=== PATIENT | male | born 1935 | race Caucasian/White ===

== ENCOUNTER 2017-05-25 15:23 | Observation (INO) | payer MEDICARE ==
[~2017-05-25] VITALS: Ht 170.2 cm; Wt 92.1 kg
[~2017-05-25 15:23] MED LIST: AEC81 PO; ATOR10 PO; CLOP75TA14 PO; CYAN100010 PO; ENOX80DI8 SQ; FENO134C PO; METF500T6 PO; METO25 PO; SITA100T12 PO; WARF5TAB76 PO
[2017-05-25] MEDS ORDERED: ASPIRIN 325 MG TABLET ONE (15:54)
[2017-05-25 16:19] LABS: BASOPHILS % (AUTO) 0.4 % (0.0-5.0); EOSINOPHILS % (AUTO) 0.8 % (0.0-8.0); HEMATOCRIT 46.4 % (42-54); LYMPHOCYTES % (AUTO) 7.6 % (21.0-51.0); MEAN CORPUSCULAR HEMOGLOBIN 30.6 pg (27.0-33.0); MEAN CORPUSCULAR HGB CONC 33.6 g/dL (32.0-36.0); MEAN CORPUSCULAR VOLUME 91.2 fL (79-99); MONOCYTES % (AUTO) 7.1 % (3.0-13.0); NEUTROPHILS % (AUTO) 84.1 % (40.0-77.0); PLATELET COUNT (AUTO) 200 K/uL (130-400); RED BLOOD CELL COUNT(AUTO) 5.08 MIL/uL (4.50-6.20); RED CELL DISTRIBUTION WIDTH 13.8 % (11.0-15.5)
[2017-05-25 16:27] LABS: CREATININE 1.1 mg/dL (0.5-1.5); POTASSIUM 4.5 mmol/L (3.5-5.1)
[2017-05-25 16:31] LABS: ALBUMIN 3.8 g/dL (3.5-5.0); BILIRUBIN,DIRECT 0.1 mg/dL (0.0-0.3); BILIRUBIN,TOTAL 0.5 mg/dL (0.2-1.0); TOTAL PROTEIN, SERUM 7.5 g/dL (6.0-8.3)
[2017-05-25 16:47] LABS: B-TYPE NATRIURETIC PEPTIDE 95 pg/mL (0-100)
[2017-05-25] MEDS ORDERED: SODIUM CHLORIDE 0.9% 1000ML 1,000 ML IV ONE (17:28)
[2017-05-25] MEDS ORDERED: FENTANYL CITRATE PF 50 MCG/1 ML 2ML VIAL ONE (17:28)
[2017-05-25 18:55] VITALS: BP 123/66
[2017-05-25] MEDS ORDERED: MORPHINE SULFATE 2 MG/ML 1ML SYG IVP PRN (19:15)
[2017-05-25] MEDS ORDERED: ONDANSETRON HCL 4 MG/2 ML VIAL IVP PRN (19:15)
[2017-05-25] MEDS ORDERED: MORPHINE SULFATE 4 MG/1ML SYG IVP PRN (19:15)
[2017-05-25] MEDS ORDERED: ACETAMINOPHEN 325 MG TAB PO PRN (19:15)
[2017-05-25 22:38] LABS: BILIRUBIN,URINE Negative (NEGATIVE); COLOR,URINE Yellow (YELLOW); GLUCOSE, URINE (UA) 500 mg/dL (NEGATIVE); KETONES,URINE Negative (NEGATIVE); LEUKOCYTE ESTERASE ,URINE Negative (NEGATIVE); NITRATE,URINE Negative (NEGATIVE); OCCULT BLOOD,URINE Negative (NEGATIVE); PH,URINE 6.5 (5.0-8.0); PROTEIN,URINE Negative (NEGATIVE); UROBILINOGEN,URINE 0.2 mg/dL (0.2-1.0)
[2017-05-25 22:40] LABS: APPEARANCE,URINE CLEAR (CLEAR)
[2017-05-25 22:52] LABS: BACTERIA,URINE None Seen /HPF (None Seen); RBC,URINE None Seen /HPF (0-1); SQUAMOUS EPITHELIAL CELL,UR Rare /LPF (0-2); WBC,URINE None Seen /HPF (0-1); YEAST,URINE BUDDING None Seen /HPF (None Seen)
[2017-05-25] MEDS ORDERED: GLIM1TAB2 PO (23:01)
[2017-05-25] MEDS ORDERED: ATOR10TA69 PO (23:01)
[2017-05-25] MEDS: METOPROLOL TARTRATE 25 MG TAB PO SCH (23:03)
[2017-05-25 23:07] LABS: CREATINE KINASE MB 0.8 ng/mL (0.5-3.6); CREATINE KINASE, TOTAL 80 U/L (21-232); MYOGLOBIN 53 ng/mL (10-92); TROPONIN I < 0.04 ng/mL (0.00-0.06)
[2017-05-26] MEDS ORDERED: HYDRALAZINE HCL 20 MG/ML VIAL IV PRN
[2017-05-26] MEDS ORDERED: POTASSIUM CHLORIDE 20 MEQ ERTAB PO PRN
[2017-05-26] MEDS ORDERED: POTASSIUM CHLORIDE 10% ELIXIR 20 MEQ/15 ML UDCUP PO PRN
[2017-05-26] MEDS ORDERED: LIDOCAINE HCL-MPF 1% 2ML VIAL IVP PRN
[2017-05-26] MEDS ORDERED: POTASSIUM CHLORIDE 20MEQ/100ML 100 ML IV PRN
[2017-05-26 00:05] VITALS: BP 124/70
[2017-05-26] MEDS: LEVOFLOXACIN 500 MG/D5W 100 ML 100 ML IV SCH (00:38)
[2017-05-26 04:02] VITALS: BP 95/49
[2017-05-26 05:07] LABS: BASOPHILS % (AUTO) 0.5 % (0.0-5.0); EOSINOPHILS % (AUTO) 0.8 % (0.0-8.0); HEMATOCRIT 41.1 % (42-54); LYMPHOCYTES % (AUTO) 16.3 % (21.0-51.0); MEAN CORPUSCULAR HEMOGLOBIN 30.2 pg (27.0-33.0); MEAN CORPUSCULAR HGB CONC 33.4 g/dL (32.0-36.0); MEAN CORPUSCULAR VOLUME 90.5 fL (79-99); MONOCYTES % (AUTO) 13.4 % (3.0-13.0); PLATELET COUNT (AUTO) 190 K/uL (130-400); RED BLOOD CELL COUNT(AUTO) 4.54 MIL/uL (4.50-6.20); RED CELL DISTRIBUTION WIDTH 14.1 % (11.0-15.5); WHITE BLOOD COUNT (AUTO) 6.1 K/uL (4.8-10.8)
[2017-05-26 05:17] LABS: B-TYPE NATRIURETIC PEPTIDE 166 pg/mL (0-100)
[2017-05-26 05:36] LABS: CARBON DIOXIDE 26 mmol/L (21-32); CHLORIDE 104 mmol/L (101-111); CREATINE KINASE MB < 0.5 ng/mL (0.5-3.6); CREATINE KINASE, TOTAL 60 U/L (21-232); GLOMERULAR FILTR. RATE CALC 76 mL/min (>60); GLUCOSE,RANDOM 169 mg/dL (70-105); MYOGLOBIN 49 ng/mL (10-92); POTASSIUM 3.8 mmol/L (3.5-5.1); SODIUM SERUM 139 mmol/L (136-145); TROPONIN I < 0.04 ng/mL (0.00-0.06); UREA NITROGEN, BLOOD 11 mg/dL (7-18)
[2017-05-26 07:31] VITALS: BP 127/58
[2017-05-26] MEDS ORDERED: IOPAMIDOL-370 100 ML VIAL IV ONE (08:39)
[2017-05-26] MEDS ORDERED: ENOXAPARIN SODIUM 30 MG/0.3 ML SQ SCH (09:00)
[2017-05-26] MEDS: ASPIRIN 325 MG TABLET PO SCH (09:32)
[2017-05-26] MEDS: FAMOTIDINE 20MG TAB 20 MG TAB PO SCH ×2 (09:32→21:45)
[2017-05-26] MEDS: METOPROLOL TARTRATE 25 MG TAB PO SCH ×2 (09:32→21:45)
[2017-05-26 11:57] VITALS: BP 130/80
[2017-05-26 16:32] VITALS: BP 119/77
[2017-05-26] MEDS: LINAGLIPTIN 5 MG TABLET PO SCH (19:10)
[2017-05-26 20:00] VITALS: BP 128/76
[2017-05-26] MEDS ORDERED: METOPROLOL TARTRATE 25 MG TAB PO SCH (21:00)
[2017-05-26] MEDS ORDERED: FENOFIBRATE 134 MG PO SCH (21:00)
[2017-05-26] MEDS: GLIMEPIRIDE 2 MG TABLET PO SCH (21:45)
[2017-05-27] VITALS: BP 116/73
[2017-05-27] MEDS ORDERED: SODIUM CHLORIDE 0.9% 500ML 500 ML IV ONE (01:41)
[2017-05-27] MEDS: LEVOFLOXACIN 500 MG/D5W 100 ML 100 ML IV SCH (01:46)
[2017-05-27] MEDS: GUAIFENESIN-DM 200/20 MG 10 ML PO PRN ×2 (01:47→10:14)
[2017-05-27 03:46] VITALS: BP 133/78
[2017-05-27 05:21] LABS: BASOPHILS % (AUTO) 0.6 % (0.0-5.0); EOSINOPHILS % (AUTO) 0.9 % (0.0-8.0); HEMATOCRIT 41.5 % (42-54); LYMPHOCYTES % (AUTO) 17.5 % (21.0-51.0); MEAN CORPUSCULAR HEMOGLOBIN 31.7 pg (27.0-33.0); MEAN CORPUSCULAR HGB CONC 34.6 g/dL (32.0-36.0); MEAN CORPUSCULAR VOLUME 91.6 fL (79-99); MONOCYTES % (AUTO) 12.4 % (3.0-13.0); NEUTROPHILS % (AUTO) 68.6 % (40.0-77.0); PLATELET COUNT (AUTO) 177 K/uL (130-400); RED BLOOD CELL COUNT(AUTO) 4.53 MIL/uL (4.50-6.20); RED CELL DISTRIBUTION WIDTH 13.7 % (11.0-15.5); WHITE BLOOD COUNT (AUTO) 5.9 K/uL (4.8-10.8)
[2017-05-27 05:39] LABS: B-TYPE NATRIURETIC PEPTIDE 160 pg/mL (0-100)
[2017-05-27] MEDS: LACTULOSE 20 GM/30 ML UDCUP PO PRN ×2 (06:37→10:13)
[2017-05-27] MEDS: INSULIN HUMULIN R 100 UNIT/ML 3ML SQ SCH ×2 (06:38→13:07)
[2017-05-27 08:56] VITALS: BP 134/87
[2017-05-27] MEDS ORDERED: CYANOCOBALAMIN (VITAMIN B-12) 1,000 MCG TABLET PO SCH (09:00)
[2017-05-27] MEDS ORDERED: ATORVASTATIN CALCIUM 10 MG TABLET PO SCH (09:00)
[2017-05-27] MEDS: METOPROLOL TARTRATE 25 MG TAB PO SCH (09:00)
[2017-05-27] MEDS: FAMOTIDINE 20MG TAB 20 MG TAB PO SCH (10:08)
[2017-05-27] MEDS: LINAGLIPTIN 5 MG TABLET PO SCH (10:09)
[2017-05-27] MEDS: GLIMEPIRIDE 2 MG TABLET PO SCH (10:09)
[2017-05-27] MEDS: ASPIRIN 325 MG TABLET PO SCH (10:09)
[2017-05-27 12:47] VITALS: BP 130/77
== END 2017-05-27 14:40 | disposition home or self-care (01) ==
LOC: EDH 15:23 → EDHIP 17:27 → 4CH 18:09
PROVIDERS: ADMIT Internal Medicine; ATTEND Internal Medicine
DX: R07.89 Other chest pain (principal); I25.10 Atherosclerotic heart disease of native coronary artery without angina pectoris; E78.5 Hyperlipidemia, unspecified; E11.9 Type 2 diabetes mellitus without complications; I11.0 Hypertensive heart disease with heart failure; I50.22 Chronic systolic (congestive) heart failure; I25.2 Old myocardial infarction; F17.210 Nicotine dependence, cigarettes, uncomplicated; Z23 Encounter for immunization; Z95.5 Presence of coronary angioplasty implant and graft; B34.9 Viral infection, unspecified
CPT/HCPCS: 36415 ×3; 71045; 71275; 80048 ×2; 80076; 81001; 82550 ×3; 82553 ×3; 82948 ×7; 83690; 83874 ×2; 83880 ×3; 84484 ×3; 85025 ×3; 85378; 87088; 87633; 87804 ×2; 93005; 93970; 96365; 96366; 96372 ×2; 99285; G0378 ×45; J1650 ×2; J1815 ×2; J1956 ×2; J3010; J7030; J7040; Q9967

== ENCOUNTER → 2017-07-16 | Outpatient (CLI) | payer MEDICARE ==
[~2017-07-16] MED LIST changes: -ATOR10 PO; +ATOR10TA69 PO; -CLOP75TA14 PO; -ENOX80DI8 SQ; +GLIM1TAB2 PO; -WARF5TAB76 PO
== END | disposition home or self-care (01) ==
LOC: RAH 12:44
PROVIDERS: ATTEND Family Medicine
DX: N28.1 Cyst of kidney, acquired (principal)
CPT/HCPCS: 76770

== ENCOUNTER → 2017-09-18 | Outpatient (CLI) | payer MEDICARE | END | disposition home or self-care (01) | LOC: SHCH 09:14 | PROVIDERS: ATTEND Internal Medicine Cardiovascular Disease | DX: I25.10 Atherosclerotic heart disease of native coronary artery without angina pectoris (principal); I65.23 Occlusion and stenosis of bilateral carotid arteries | CPT/HCPCS: 93880 ==

== ENCOUNTER → 2018-02-22 | Outpatient (CLI) | payer MEDICARE ==
[~2018-02-22] MED LIST changes: +METF-444 PO; -METF500T6 PO
== END | disposition home or self-care (01) ==
LOC: RAH 11:46
PROVIDERS: ATTEND Family Medicine
DX: N28.1 Cyst of kidney, acquired (principal); N32.89 Other specified disorders of bladder; I11.0 Hypertensive heart disease with heart failure; I50.22 Chronic systolic (congestive) heart failure; E11.9 Type 2 diabetes mellitus without complications; E78.5 Hyperlipidemia, unspecified; I25.10 Atherosclerotic heart disease of native coronary artery without angina pectoris; Z87.891 Personal history of nicotine dependence
CPT/HCPCS: 76770

== ENCOUNTER → 2019-04-14 | Outpatient (CLI) | payer MEDICARE ==
[~2019-04-14] MED LIST changes: -GLIM1TAB2 PO; +GLIM1TAB3 PO
== END | disposition home or self-care (01) ==
LOC: SHCH 11:37
PROVIDERS: ATTEND Internal Medicine Cardiovascular Disease
DX: I35.8 Other nonrheumatic aortic valve disorders (principal); I51.7 Cardiomegaly
CPT/HCPCS: 93306

== ENCOUNTER 2019-08-04 09:44 | Observation (INO) | payer MEDICARE ==
[2019-08-01 10:07] LABS: BASOPHILS % (AUTO) 0.7 % (0.0-5.0); EOSINOPHILS % (AUTO) 2.4 % (0.0-8.0); HEMATOCRIT 48.3 % (42-54); LYMPHOCYTES % (AUTO) 23.7 % (21.0-51.0); MEAN CORPUSCULAR HEMOGLOBIN 30.2 pg (27.0-33.0); MEAN CORPUSCULAR HGB CONC 32.3 g/dL (32.0-36.0); MEAN CORPUSCULAR VOLUME 93.6 fL (79-99); MONOCYTES % (AUTO) 6.6 % (3.0-13.0); NEUTROPHILS % (AUTO) 66.3 % (40.0-77.0); PLATELET COUNT (AUTO) 220 K/uL (130-400); RED BLOOD CELL COUNT(AUTO) 5.16 MIL/uL (4.50-6.20); RED CELL DISTRIBUTION WIDTH 13.7 % (11.0-15.5); WHITE BLOOD COUNT (AUTO) 7.6 K/uL (4.8-10.8)
[2019-08-01 10:29] LABS: INR 0.97 (0.85-1.15); PARTIAL THROMBOPLASTIN TIME 27.8 SEC (26.3-35.5); PROTHROMBIN TIME 10.5 SEC (9.6-11.6)
[2019-08-01 10:30] LABS: POTASSIUM 4.5 mmol/L (3.5-5.1)
[2019-08-01 10:44] VITALS: BP 138/69
[2019-08-04] VITALS (13 sets, daily range): BP systolic 128–161; BP diastolic 66–87
[~2019-08-04] VITALS: Ht 170.2 cm; Wt 92.1 kg
[~2019-08-04 09:44] MED LIST changes: -AEC81 PO; +ASPI-1005 PO; -ATOR10TA69 PO; +ATOR40TA71 PO; -FENO134C PO; -GLIM1TAB3 PO; +INSLAN SQ; +LISI10TA7 PO; -METF-444 PO; +METF-446 PO; +METO-391 PO; -METO25 PO; -SITA100T12 PO; +SODIUM CHLORIDE 0.9% 1000ML 1,000 ML IV SCH
--- NOTE | 2019-08-04 09:45 | NUR ---
PRE-PROCEDURE RECEIVED AMBULATING TO DAY 8 FOR SCHEDULED BI-V AICD. AWAKE IN NO ACUTE DISTRESS. DENIES PAIN. CONNECTED TO CONTINUOUS CARDIOPULMONARY MONITORING. SIDE RAILS UP X2, BED IN LOWEST POSITION, AND CALL LIGHT W/IN REACH.
--- NOTE | 2019-08-04 10:25 | NUR ---
SPOKE WITH PAULETTE WILDE RN (DR. WILSON IN PROCEDURE) IN [employer]NA[employer]ED [employer]SULTANT NOTIFIED PT TOOK LANT[place] 25UNITS IN AM. NO NEW ORDERS RECEIVED.
[2019-08-04] MEDS ORDERED: BUPIVACAINE/PF 0.25% 30ML VIAL IJ ONE (13:15)
[2019-08-04] MEDS ORDERED: CEFAZOLIN SODIUM 1 GM VIAL ONE (13:16)
[2019-08-04] MEDS ORDERED: LIDOCAINE HCL 1% MDV 50ML VIAL ONE (13:16)
[2019-08-04] MEDS ORDERED: IODIXANOL 320 MG/ML 100 ML VIAL ONE (13:16)
--- NOTE | 2019-08-04 13:20 | NUR ---
PROCEDURE TRANSFERRED TO CUT OFF SAW OPERATOR METAL VIA BED BY PAULETTE WILDE RN. AWAKE IN NO ACUTE DISTRESS.
[2019-08-04] MEDS ORDERED: MIDAZOLAM HCL 1 MG/ML 2ML VIAL ONE ×2 (13:41→14:06)
[2019-08-04] MEDS ORDERED: MEPERIDINE-PF 25 MG/ML SYG ONE ×2 (13:41→14:05)
--- NOTE | 2019-08-04 14:08 | NUR ---
REPORT REPORT GIVEN TO FRANNY BANDA USING SBAR. VERBALIZED UNDERSTANDING. PT CURRENTLY IN PROCEDURE.
--- NOTE | 2019-08-04 15:40 | NUR ---
PT TSF BACK TO DAY 8 FROM US [employer]ICER, TSF BY BED BY RIN BLANTON.
--- NOTE | 2019-08-04 16:05 | NUR ---
CALL [facility] FOR CONSULT WAIT TRADE [employer]ION SECRETARY BACK
--- NOTE | 2019-08-04 16:10 | NUR ---
TIMOTHY FROM [facility] WILL COME AND SEE PT. IN DAY 8. NO ORDERS GIVEN
[2019-08-04] MEDS ORDERED: GLUCAGON 1MG KIT 1 MG ML IM PRN (17:45)
[2019-08-04] MEDS ORDERED: DEXTROSE 50%-WATER 50 ML DISP.SYRIN IV PRN (17:45)
[2019-08-04] MEDS: ACETAMINOPHEN-CODEINE 300/30MG TAB PO PRN (17:55)
--- NOTE | 2019-08-04 18:05 | NUR ---
STATUS PT RECEIVED FROM DAY PT VIA BED, S/P BiV ICD PLACEMENT. LT UPPER CHEST PRESSURE DSG. NO DRAINAGE NOTED. SLING TO LT ARM. ARM PRECAUTIONS REVIEWED & REINFORCED @ THIS TIME. BEDREST UNTIL 1839. DENIES INCISIONAL PAIN @ THIS TIME. A/O X 3. NO SOB. NO DISTRESS NOTED. TELE: SR. DENIES N/V AND/OR DIARRHEA. ORIENTED TO RM. INSTRUCTED TO CALL FOR ASSISTANCE. CALL LINDA W/IN REACH.
[2019-08-04] MEDS ORDERED: LISINOPRIL 10 MG TABLET PO SCH (21:00)
[2019-08-04] MEDS: INSULIN HUMULIN R 100 UNIT/ML 3ML SQ SCH (21:00)
[2019-08-04] MEDS ORDERED: ATORVASTATIN CALCIUM 40 MG TABLET PO SCH (21:00)
[2019-08-04] MEDS ORDERED: METOPROLOL SUCCINATE 50 MG TAB.SR.24H PO SCH (21:00)
[2019-08-04] MEDS: INSULIN GLARGINE 100 UNITS/ML 10 ML VIAL SQ SCH (21:45)
[2019-08-05 03:47] VITALS: BP 127/77
[2019-08-05] MEDS: INSULIN HUMULIN R 100 UNIT/ML 3ML SQ SCH (06:55)
[2019-08-05 07:59] VITALS: BP 122/81
[2019-08-05] MEDS: INSULIN GLARGINE 100 UNITS/ML 10 ML VIAL SQ SCH (08:54)
[2019-08-05] MEDS: ACETAMINOPHEN-CODEINE 300/30MG TAB PO PRN (08:55)
[2019-08-05] MEDS ORDERED: ASPIRIN 81MG TAB.CHEW PO SCH (09:00)
[2019-08-05 12:15] VITALS: BP 140/76
--- NOTE | 2019-08-05 13:23 | NUR ---
[id number] patient signed MALHOTRA Letter, I faxed MALHOTRA Letter to [phone] and placed in chart under consent tab
--- NOTE | 2019-08-05 16:09 | NUR ---
Patient in no apparent distress. No shortness of breath and no chest pain. Patient verbalized discharge instructions. Patient discharged at this time.
== END 2019-08-05 16:13 | disposition home or self-care (01) ==
LOC: DAH 09:44 → DAHIP 09:45 → 2DH 17:38
PROVIDERS: ADMIT Internal Medicine; ATTEND Internal Medicine
DX: I25.5 Ischemic cardiomyopathy (principal); I50.22 Chronic systolic (congestive) heart failure; I11.0 Hypertensive heart disease with heart failure; I25.2 Old myocardial infarction; I25.10 Atherosclerotic heart disease of native coronary artery without angina pectoris; E78.5 Hyperlipidemia, unspecified; E11.9 Type 2 diabetes mellitus without complications; Z79.899 Other long term (current) drug therapy; Z87.891 Personal history of nicotine dependence
CPT/HCPCS: 33249; 36415; 71045; 80048; 82948 ×6; 85025; 85610; 85730; 93005; A4215; A4216; A4221; A4222; A4223 ×3; A4606; A4663; C1721; C1895 ×2; G0378 ×16; J0690; J1815; J2175 ×2; J2250 ×2; J3490 ×2; J7030; Q9967; 99156; 99157

== ENCOUNTER 2020-07-09 05:38 | Inpatient (IN) | payer MEDICARE ==
[2020-07-05 13:15] LABS: BASOPHILS % (AUTO) 0.6 % (0.0-5.0); EOSINOPHILS % (AUTO) 1.5 % (0.0-8.0); HEMATOCRIT 48.1 % (42-54); MEAN CORPUSCULAR HEMOGLOBIN 30.3 pg (27.0-33.0); MEAN CORPUSCULAR HGB CONC 32.6 g/dL (32.0-36.0); MEAN CORPUSCULAR VOLUME 92.9 fL (79-99); MONOCYTES % (AUTO) 8.9 % (3.0-13.0); NEUTROPHILS % (AUTO) 64.6 % (40.0-77.0); PLATELET COUNT (AUTO) 219 K/uL (130-400); RED BLOOD CELL COUNT(AUTO) 5.18 MIL/uL (4.50-6.20); RED CELL DISTRIBUTION WIDTH 13.7 % (11.0-15.5); WHITE BLOOD COUNT (AUTO) 8.2 K/uL (4.8-10.8)
[2020-07-05 13:24] LABS: APPEARANCE,URINE Clear (CLEAR); BILIRUBIN,URINE Negative (NEGATIVE); COLOR,URINE Yellow (YELLOW); GLUCOSE, URINE (UA) 250 mg/dL (NEGATIVE); KETONES,URINE Negative (NEGATIVE); LEUKOCYTE ESTERASE ,URINE Negative (NEGATIVE); NITRATE,URINE Negative (NEGATIVE); OCCULT BLOOD,URINE Negative (NEGATIVE); PROTEIN,URINE Negative (NEGATIVE); UROBILINOGEN,URINE 0.2 mg/dL (0.2-1.0)
[2020-07-05 13:30] LABS: INR 1.05 (0.85-1.15); PROTHROMBIN TIME 11.4 SEC (9.6-11.6)
[2020-07-05 13:31] LABS: PARTIAL THROMBOPLASTIN TIME 28.1 SEC (26.3-35.5)
[2020-07-05 13:47] LABS: POTASSIUM 4.9 mmol/L (3.5-5.1)
[2020-07-05 13:54] LABS: BACTERIA,URINE None Seen /HPF (None Seen); RBC,URINE 0-1 /HPF (0-1); SQUAMOUS EPITHELIAL CELL,UR None Seen /HPF (0-2); WBC,URINE 0-1 /HPF (0-1)
[2020-07-06 11:30] VITALS: BP 152/84
[2020-07-09] VITALS (17 sets, daily range): BP systolic 120–169; BP diastolic 64–116
[~2020-07-09] VITALS: Ht 170.2 cm; Wt 95.3 kg
[~2020-07-09 05:38] MED LIST changes: +0.9% NACL 500ML IV.SOLN 500 ML IV SCH; +LISI10TA24 PO; -LISI10TA7 PO; -METO-391 PO; +METO-409 PO; -SODIUM CHLORIDE 0.9% 1000ML 1,000 ML IV SCH
[2020-07-09] MEDS ORDERED: HEPARIN 10,000 UNIT/10ML (1,000 UNIT/ML) VIAL ONE (08:31)
[2020-07-09] MEDS ORDERED: LIDOCAINE HCL 1% 20 ML VIAL ONE (08:31)
[2020-07-09] MEDS ORDERED: NICARDIPINE 25MG INJ IV ONE (08:32)
[2020-07-09] MEDS ORDERED: IOHEXOL 350 MG/ML 100ML INFUS..BTL IV ONE (08:32)
[2020-07-09] MEDS ORDERED: IOHEXOL-350 50ML VIAL IV ONE (08:32)
[2020-07-09] MEDS ORDERED: NITROGLYCERIN 2 MG VIAL IV ONE (08:32)
[2020-07-09] MEDS ORDERED: MEPERIDINE-PF 25 MG/ML SYG ONE ×3 (08:42→09:37)
[2020-07-09] MEDS ORDERED: MIDAZOLAM HCL 1 MG/ML 2ML VIAL ONE ×3 (08:42→09:37)
[2020-07-09] MEDS ORDERED: 0.9%NACL 1000ML 1,000 ML IV SCH (10:00)
[2020-07-09] MEDS ORDERED: GLUCAGON 1MG KIT 1 MG ML IM PRN (10:00)
[2020-07-09] MEDS ORDERED: DEXTROSE 50%-WATER 50 ML DISP.SYRIN IV PRN (10:00)
[2020-07-09] MEDS: INSULIN HUMULIN R 100 UNIT/ML 3ML SQ SCH ×3 (11:30→21:12)
[2020-07-09] MEDS ORDERED: ACETAMINOPHEN 325 MG TAB PO PRN (12:30)
[2020-07-09] MEDS ORDERED: ACETAMINOPHEN 325 MG TAB ONE (12:36)
[2020-07-09 14:24] LABS: HEMATOCRIT 45.9 % (42-54); MEAN CORPUSCULAR HEMOGLOBIN 30.3 pg (27.0-33.0); MEAN CORPUSCULAR HGB CONC 32.7 g/dL (32.0-36.0); MEAN CORPUSCULAR VOLUME 92.7 fL (79-99); RED BLOOD CELL COUNT(AUTO) 4.95 MIL/uL (4.50-6.20); RED CELL DISTRIBUTION WIDTH 13.9 % (11.0-15.5); WHITE BLOOD COUNT (AUTO) 8.8 K/uL (4.8-10.8)
[2020-07-09 14:39] LABS: HEMOGLOBIN A1C 7.2 % (4.0-6.0); INR 1.05 (0.85-1.15); PROTHROMBIN TIME 11.4 SEC (9.6-11.6)
[2020-07-09 14:41] LABS: ALBUMIN 3.4 g/dL (3.5-5.0); BILIRUBIN,TOTAL 0.6 mg/dL (0.2-1.0); PARTIAL THROMBOPLASTIN TIME 27.9 SEC (26.3-35.5); POTASSIUM 4.4 mmol/L (3.5-5.1); TOTAL PROTEIN, SERUM 7.2 g/dL (6.0-8.3)
[2020-07-09] MEDS ORDERED: METFORMIN HCL 500 MG TABLET PO SCH (17:00)
[2020-07-09] MEDS ORDERED: NON-FORMULARY MEDICATION 1 EACH (Metformin HCl 1,000 MG) PO SCH (21:00)
[2020-07-10 00:03] VITALS: BP 138/79
[2020-07-10] MEDS ORDERED: INSULIN GLARGINE 100 UNITS/ML 10 ML VIAL SQ SCH (09:00)
[2020-07-10] MEDS ORDERED: ATORVASTATIN 40 MG TABLET PO SCH (09:00)
[2020-07-10] MEDS ORDERED: CEFAZOLIN SODIUM 1 GM VIAL IVP PRN (09:00)
[2020-07-10] MEDS ORDERED: NON-FORMULARY MEDICATION 1 EACH (Metoprolol Succinate 50 MG) PO SCH (09:00)
[2020-07-10] MEDS ORDERED: ASPIRIN 81MG CHEW TAB PO SCH (09:00)
[2020-07-10] MEDS ORDERED: METOPROLOL SUCCINATE 50 MG TAB.SR.24H PO SCH (09:00)
[2020-07-10] MEDS ORDERED: LISINOPRIL 10 MG TABLET PO SCH (09:00)
== END 2020-07-10 02:21 | disposition short-term general hospital (02) | DRG 287 ==
LOC: DAH 05:38 → DAHIP 05:39 → 4DH 13:57
PROVIDERS: ADMIT Thoracic Surgery (Cardiothoracic Vascular Surgery); ATTEND Thoracic Surgery (Cardiothoracic Vascular Surgery)
PROC: B2111ZZ Fluoroscopy of Multiple Coronary Arteries using Low Osmolar Contrast (ICD-10-PCS; principal; 2020-07-09)
DX: T82.855A Stenosis of coronary artery stent, initial encounter (principal); I47.2 Ventricular tachycardia; I50.42 Chronic combined systolic (congestive) and diastolic (congestive) heart failure; I44.2 Atrioventricular block, complete; E78.5 Hyperlipidemia, unspecified; E11.9 Type 2 diabetes mellitus without complications; I25.5 Ischemic cardiomyopathy; I11.0 Hypertensive heart disease with heart failure; I25.119 Atherosclerotic heart disease of native coronary artery with unspecified angina pectoris; Y83.1 Surgical operation with implant of artificial internal device as the cause of abnormal reaction of the patient, or of later complication, without mention of misadventure at the time of the procedure; Y92.89 Other specified places as the place of occurrence of the external cause; I25.2 Old myocardial infarction; Z95.5 Presence of coronary angioplasty implant and graft
CPT/HCPCS: 36415; 71045; 80048; 80053; 80061; 81001; 82948; 83036; 83880; 85025; 85027; 85610; 85730; 86850; 86900; 86901; 86922; 93005; 93454; 93880; 94010; 99156; 99157; A4606; C1769; G0378; J1644; J1815; J2175; J2250; J3490; J7040; Q9967

== ENCOUNTER 2021-05-13 06:59 | Day surgery (SDC) | payer OTHER ==
[2021-05-09 13:43] LABS: BASOPHILS % (AUTO) 0.5 % (0.0-5.0); HEMATOCRIT 42.9 % (42-54); LYMPHOCYTES % (AUTO) 33.5 % (21.0-51.0); MEAN CORPUSCULAR HEMOGLOBIN 31.2 pg (27.0-33.0); MEAN CORPUSCULAR HGB CONC 33.6 g/dL (32.0-36.0); MEAN CORPUSCULAR VOLUME 92.9 fL (79-99); NEUTROPHILS % (AUTO) 57.7 % (40.0-77.0); PLATELET COUNT (AUTO) 261 K/uL (130-400); RED BLOOD CELL COUNT(AUTO) 4.62 MIL/uL (4.50-6.20); RED CELL DISTRIBUTION WIDTH 13.4 % (11.0-15.5); WHITE BLOOD COUNT (AUTO) 7.9 K/uL (4.8-10.8)
[2021-05-09 13:56] LABS: CREATININE 1.2 mg/dL (0.5-1.5); POTASSIUM 4.5 mmol/L (3.5-5.1)
[2021-05-09 13:59] LABS: INR 1.09 (0.85-1.15); PROTHROMBIN TIME 11.8 SEC (9.6-11.6)
[2021-05-13] VITALS (9 sets, daily range): BP systolic 105–134; BP diastolic 61–80
[~2021-05-13] VITALS: Ht 170.2 cm; Wt 82.2 kg
[~2021-05-13 06:59] MED LIST changes: -0.9% NACL 500ML IV.SOLN 500 ML IV SCH; -ASPI-1005 PO; +ASPI-1443 PO; +CARV6.25 PO; +CEFAZOLIN SODIUM 1 GM VIAL IVP SCH; +CYAN-52 PO; -CYAN100010 PO; +FAMO20TA8 PO; +FURO20TA4 PO; +GLIP5TAB11 PO; -LISI10TA24 PO; +LISI5TAB21 PO; -METO-409 PO
[2021-05-13] MEDS ORDERED: 0.9%NACL 1000ML 1,000 ML IV SCH (08:00)
[2021-05-13] MEDS ORDERED: BUPIVACAINE/PF 0.25% 30ML VIAL IJ ONE (09:20)
[2021-05-13] MEDS ORDERED: CEFAZOLIN SODIUM 1 GM VIAL ONE ×2 (09:20→12:25)
[2021-05-13] MEDS ORDERED: IODIXANOL 320 MG/ML 100 ML VIAL ONE (09:20)
[2021-05-13] MEDS ORDERED: LIDOCAINE HCL 1% MDV 50ML VIAL ONE (09:20)
[2021-05-13] MEDS ORDERED: MEPERIDINE-PF 25 MG/ML SYG ONE ×2 (10:12→10:32)
[2021-05-13] MEDS ORDERED: MIDAZOLAM HCL 1 MG/ML 2ML VIAL ONE ×2 (10:12→10:32)
[2021-05-13] MEDS ORDERED: DEXTROSE 50%-WATER 50 ML DISP.SYRIN IV PRN (12:00)
[2021-05-13] MEDS ORDERED: ACETAMINOPHEN 325 MG TAB PO PRN ×2 (12:00)
[2021-05-13] MEDS ORDERED: CEFAZOLIN SODIUM 1 GM VIAL IVP ONE (16:00)
[2021-05-13] MEDS ORDERED: INSULIN HUMULIN R 100 UNIT/ML 3ML SQ SCH (16:30)
== END 2021-05-13 16:30 | disposition home or self-care (01) ==
LOC: DAH 06:59
PROVIDERS: ATTEND Internal Medicine Cardiovascular Disease
DX: I25.5 Ischemic cardiomyopathy (principal); I49.5 Sick sinus syndrome; I44.2 Atrioventricular block, complete; I11.0 Hypertensive heart disease with heart failure; I50.22 Chronic systolic (congestive) heart failure; I25.10 Atherosclerotic heart disease of native coronary artery without angina pectoris; E11.9 Type 2 diabetes mellitus without complications; I25.2 Old myocardial infarction; E78.5 Hyperlipidemia, unspecified; Z95.5 Presence of coronary angioplasty implant and graft; Z79.01 Long term (current) use of anticoagulants; Z79.84 Long term (current) use of oral hypoglycemic drugs; Z79.899 Other long term (current) drug therapy
CPT/HCPCS: 33225; 33264; 36415; 71045; 80048; 82948 ×2; 85025; 85610; 85730; 93005; A4215; A4216; A4221; A4222; A4223 ×3; A4606; A4663; C1769 ×2; C1882; C1894; C1900; J0690 ×2; J2175 ×2; J2250 ×2; J3490 ×2; Q9967; 99156; 99157

== ENCOUNTER 2021-06-16 21:07 | Emergency (ER) | payer OTHER ==
[~2021-06-16] VITALS: Ht 170.2 cm; Wt 81.6 kg
[~2021-06-16 21:07] MED LIST changes: -CEFAZOLIN SODIUM 1 GM VIAL IVP SCH; -LISI5TAB21 PO; +PHARMACY COMMUNICATION MISC SCH
[2021-06-16] MEDS ORDERED: MECLIZINE HCL 25 MG TABLET PO ONE (21:30)
[2021-06-16 21:53] LABS: BASOPHILS % (AUTO) 0.3 % (0.0-5.0); EOSINOPHILS % (AUTO) 0.8 % (0.0-8.0); HEMATOCRIT 47.6 % (42-54); LYMPHOCYTES % (AUTO) 6.1 % (21.0-51.0); MEAN CORPUSCULAR HEMOGLOBIN 31.6 pg (27.0-33.0); MEAN CORPUSCULAR HGB CONC 33.2 g/dL (32.0-36.0); MEAN CORPUSCULAR VOLUME 95.2 fL (79-99); MONOCYTES % (AUTO) 3.6 % (3.0-13.0); NEUTROPHILS % (AUTO) 89.1 % (40.0-77.0); PLATELET COUNT (AUTO) 167 K/uL (130-400); RED CELL DISTRIBUTION WIDTH 13.9 % (11.0-15.5); WHITE BLOOD COUNT (AUTO) 7.9 K/uL (4.8-10.8)
[2021-06-16] MEDS ORDERED: 0.9%NACL 1000ML 1,000 ML IV ONE (22:00)
[2021-06-16] MEDS ORDERED: ACETAMINOPHEN 500 MG TABLET PO ONE (22:00)
[2021-06-16 22:04] LABS: POTASSIUM 4.2 mmol/L (3.5-5.1)
[2021-06-16 22:13] LABS: ALBUMIN 3.7 g/dL (3.5-5.0); BILIRUBIN,TOTAL 0.7 mg/dL (0.2-1.0); CRP QUANTITATIVE 8.3 mg/L (0.00-9.0); TOTAL PROTEIN, SERUM 7.6 g/dL (6.0-8.3)
[2021-06-16] MEDS ORDERED: AZITHROMYCIN 250 MG TABLET PO ONE ×2 (22:30→22:35)
[2021-06-16] MEDS ORDERED: CEFTRIAXONE 1G VIAL IVP ONE (22:30)
[2021-06-16 22:35] LABS: INFLUENZA TYPE A NEGATIVE FOR TYPE A (NEG); INFLUENZA TYPE B NEGATIVE FOR TYPE B (NEG)
[2021-06-16] MEDS ORDERED: CEFTRIAXONE 1G VIAL ONE (22:35)
[2021-06-16 23:24] LABS: APPEARANCE,URINE Clear (CLEAR); BILIRUBIN,URINE Negative (NEGATIVE); COLOR,URINE Yellow (YELLOW); GLUCOSE, URINE (UA) 250 mg/dL (NEGATIVE); KETONES,URINE Trace mg/dL (NEGATIVE); LEUKOCYTE ESTERASE ,URINE Trace (NEGATIVE); NITRATE,URINE Negative (NEGATIVE); OCCULT BLOOD,URINE Negative (NEGATIVE); PROTEIN,URINE Trace mg/dL (NEGATIVE)
[2021-06-16 23:34] LABS: BACTERIA,URINE Few /HPF (None Seen); MUCUS,URINE Moderate LPF (None Seen); RBC,URINE None Seen /HPF (0-1); SQUAMOUS EPITHELIAL CELL,UR Moderate /HPF (0-2)
[2021-06-16] MEDS ORDERED: LEVO750T46 PO (23:34)
[2021-06-16] MEDS ORDERED: ALBU8.5H8 IH (23:34)
[2021-06-16] MEDS ORDERED: MECL-226 PO (23:34)
[2021-06-16 23:38] VITALS: BP 96/59
== END 2021-06-16 23:48 | disposition home or self-care (01) ==
LOC: EDH 21:07
DX: J18.9 Pneumonia, unspecified organism (principal); E86.0 Dehydration; R50.9 Fever, unspecified; R42 Dizziness and giddiness; Z20.822 Contact with and (suspected) exposure to COVID-19
CPT/HCPCS: 36415; 70450; 71045; 80053; 81001; 82948; 83690; 84484; 85025; 86140; 87635; 87804 ×2; 93005; 96361; 96374; 99285; C9803; J0696; J7030